=== PATIENT | male | born 1965 | race Caucasian/White ===

== ENCOUNTER 2017-07-31 08:38 | Emergency (ER) | payer OTHER ==
[~2017-07-31] VITALS: Ht 200.7 cm; Wt 130.0 kg
[2017-07-31] MEDS ORDERED: MORPHINE SULFATE 4 MG/ML, 1ML IVPush PRN (09:30)
[2017-07-31] MEDS ORDERED: SODIUM CHLORIDE 0.9% 1,000ML IVBOLUS ONE (09:30)
[2017-07-31] MEDS ORDERED: SODIUM CHLORIDE FLUSH 10ML SYR IVF ONE (09:30)
[2017-07-31] MEDS ORDERED: LORazepam 2 MG/ML, 1ML IVPush ONE ×2 (09:30→11:30)
[2017-07-31] MEDS ORDERED: MORPHINE SULFATE 4 MG/ML, 1ML ONE (10:23)
[2017-07-31] MEDS ORDERED: LORazepam 2 MG/ML, 1ML ONE ×2 (10:25→12:10)
[2017-07-31 10:27] LABS: BASOPHILS # (AUTO) 0.02 x10^3/uL (0-0.1); BASOPHILS % (AUTO) 0 % (0-1); EOSINOPHILS # (AUTO) 0.01 x10^3/uL (0-0.4); EOSINOPHILS % (AUTO) 0 % (1-7); LYMPHOCYTES # (AUTO) 0.96 x10^3/uL (1-3.4); LYMPHOCYTES % (AUTO) 12 % (22-44); MD NO; MEAN CORPUSCULAR HEMOGLOBIN 33.4 pg (27.5-34.5); MEAN CORPUSCULAR HGB CONC 34.1 g/dL (33.2-36.2); MEAN PLATELET VOLUME 6.8 fL (7.4-10.4); MONOCYTES # (AUTO) 0.54 x10^3/uL (0.2-0.8); MONOCYTES % (AUTO) 7 % (2-9); NEUTROPHILS # (AUTO) 6.79 x10^3/uL (1.8-6.8); NEUTROPHILS % (AUTO) 82 % (42-75); PLATELET COUNT 148 x10^3/uL (130-400); RED CELL DISTRIBUTION WIDTH 13.9 % (9.4-14.8)
[2017-07-31 10:33] VITALS: BP 147/92
[2017-07-31 10:37] LABS: ALANINE AMINOTRANSFERASE 65 U/L (12-78); ALBUMIN 3.5 g/dL (3.4-5.0); ANION GAP 12 mmol/L (5-15); CALCIUM 8.4 mg/dL (8.5-10.1); CHLORIDE 100 mmol/L (98-107); CREATININE 0.67 mg/dL (0.7-1.3)
[2017-07-31 10:39] LABS: ALKALINE PHOSPHATASE 132 U/L (45-117); BILIRUBIN,TOTAL 0.9 mg/dL (0.2-1.0); TOTAL PROTEIN 7.6 g/dL (6.4-8.2)
[2017-07-31 11:08] LABS: ACETONE, SERUM Trace (10mg/dL) mg/dL (Negative)
[2017-07-31] MEDS ORDERED: LORazepam 1MG TABLET PO ONE (11:30)
[2017-07-31] MEDS ORDERED: LORazepam 1MG TABLET ONE (12:08)
== END 2017-07-31 12:18 | disposition home or self-care (01) ==
LOC: ED 10:20
DX: R51 Headache (principal); F10.239 Alcohol dependence with withdrawal, unspecified
CPT/HCPCS: 36415; 70450; 80053; 80307; 82010; 83735; 85025; 96361; 96374; 96375; 96376; 99285; J2060; J7030; G0479